=== PATIENT | female | born 1965 | race Caucasian/White ===

== ENCOUNTER 2017-08-08 17:28 | Emergency (ER) | payer BC ==
[~2017-08-08] VITALS: Ht 157.5 cm; Wt 57.2 kg
[~2017-08-08 17:28] MED LIST: FLEXERIL10 MG PO; KEFLEX 500MG.500 MG PO; [UNRECOGNIZED DRUG - CODE] PO
--- OUTSIDE RECORDS SUMMARY | 2017-08-08 17:32 | External Medical Summary Rpt | CCD ---
Author Author , HERMELINDO CASAREZ Address Unknown Phone [email or web address] Purpose Continuity of Care Document - through 2016
--- OUTSIDE RECORDS SUMMARY | 2017-08-08 17:32 | External Medical Summary Rpt | CCD ---
Author Author [employer] Organization [employer] Address Unknown Phone Unavailable Purpose Continuity of Care Document - through 2016
--- OUTSIDE RECORDS SUMMARY | 2017-08-08 17:32 | External Medical Summary Rpt | CCD ---
Author Author , HERMELINDO CASAREZ Address Unknown Phone [email or web address] Purpose Continuity of Care Document - through 2016
--- OUTSIDE RECORDS SUMMARY | 2017-08-08 17:33 | External Medical Summary Rpt | CCD ---
Demographics Preferred Language Faroese Marital Status Unknown Congregational Affiliation Unknown Race Unknown Ethnic Group Unknown Author Author , HERMELINDO CASAREZ Address Unknown Phone Immunization Unable to retrieve immunization data due to connection failure with Immunization Registry. Please try again later.
--- OUTSIDE RECORDS SUMMARY | 2017-08-08 17:33 | External Medical Summary Rpt | CCD ---
Demographics Preferred Language Albanian Marital Status Unknown Yarsani Affiliation Unknown Race Unknown Ethnic Group Unknown Author Author , HERMELINDO CASAREZ Address Unknown Phone Immunization Unable to retrieve immunization data due to connection failure with Immunization Registry. Please try again later.
--- OUTSIDE RECORDS SUMMARY | 2017-08-08 17:33 | External Medical Summary Rpt ---
Author Author HERMELINDO Napier, [employer] Organization [employer] Address Unknown Phone Unavailable
[2017-08-08] MEDS ORDERED: BROMFED DM COU118 ML PO (18:09)
[2017-08-08] MEDS ORDERED: AUGMENTIN 875-1 EACH PO (18:09)
[2017-08-08] MEDS ORDERED: FLONASE 50 MCG16 GM (18:09)
[2017-08-08] MEDS ORDERED: MEDROL 4MG. DOSE4 MG PO (18:09)
--- NOTE | 2017-08-08 18:10 | Urgent Treatment Center Report ---
History of Present Issue Date/Time Seen by Provider 08/08/17 1750 Visit Reason Pt arrived:Walked Presenting Problem:PT C/O BILATERAL EAR PAIN AND PRESSURE, SINUS DRAINAGE X2 DAYS Location if Accident: Onset of symptoms date/time:/ or onset unknown for:MEDICAL HX UNKNOWN Have you (or family members/close friends) recently traveled outside the [place]? N If Yes, where/when: Have you had exposure to infectious disease within the past month? TB? Other? Specify: Patient state that she has not been feeling well now for several days and continued to get worse. State that she is having bilateral ear pain with pressure behind her ears and sinus pain and drainage that has continued to get worse for last 2 days States that she feels tender around her eyes and feels pressure like she may have sinus infection and now today her throat is sore and red ALLERGIES Coded Allergies: No Known Allergies (08/08/17) Home Medications Active Scripts Cyclobenzaprine Hcl (Flexeril) 5 MG PO TID #30 TAB Prov: 11/13/14 Reported Medications Ethinyl Estradiol/Levonorges (Levonest) 1 TAB PO DAILY #28 History Medical History General CAD? No Angina: No MD: No Hypertension? No Hyperlipidemia? No CHF? No DVT? No PE? No COPD? No Asthma? No Anemia? No GERD? No Gastric ulcers? No GI Bleed? No Hernia? No Thyroid Problems? No Hypothyroidism? No CVA? No Seizures? No Diabetes? No UTI? No Stones? No BPH? No GB Disease: No Nephritic Syndrome? No Asplenia? No Hepatitis? No Sickle Cell Disease? No Arthritis? No Migraines? No Cataracts? No Glaucoma? No MRSA? No HIV? No TB? No Anxiety? No Depression? No Cancer? No More? No Immunization HX DT/Tetanus Unknown Flu Refused Pneumonia Refuses Surgical Hx Previous Surgery?N Family History Family HX Diabetes No CAD No Hypertension Yes Hyperlipidemia No Cancer Yes TB No Social History Smoking Hx Smoker: Never Smoker Tobacco: No Alcohol Alcohol: No Review of Systems All Other Systems Reviewed and Negative Constitutional chills ENT ear pain, nose discharge, nose congestion, throat pain. Respiratory cough, denies shortness of breath, denies wheezing Psychiatric/Neurological headache Physical Exam Vital Signs Vital Signs Date Time Temp Pulse Resp B/P Pulse O2 O2 Flow FiO2 Ox Delivery Rate 08/08 1734 99.0 90 20 142/88 99 General Appearance normal appearance, WD/WN, no apparent distress Ear, Nose, Throat sinus pain/drainage, nasal congestion, erythema of throat noted, drainage observed, tenderness maxillary sinuses reports yellowish green drainage Respiratory Status No: respiratory distress. Cardiovascular normal exam, regular rate/rhythm, no peripheral edema Neurologic alert, normal exam, oriented x 3 Medical Decision Making LABS/Meds/Orders Pt receiving controlled substance in ED? No Results/Orders Orders Procedure Date/time Status [facility] STREP SCREEN 08/08 1804 Active Departure Departure Time of Disposition 1803 Disposition DC Home or Self Care(routine) Clinical Impression Primary Impression: Sinusitis Qualifiers: Sinusitis location: unspecified location Chronicity: unspecified Qualified Code: J32.9 - Chronic sinusitis, unspecified Condition STABLE Referrals Chad Iverson MD (Family): 2 Days-Call Office Or sooner if worsening of symptoms or no improvement Patient Instructions Cough, DI for Ear Pain-Adult, DI for Sinusitis, Sinus Headache, Sinusitis, Sore Throat Additional Instructions * Monitor Temp. Tylenol and/or Ibuprofen as needed. ER if fever is no less than 101 despite alternating Tylenol and Ibuprofen * Encourage fluids, water, Gatorade, powerade, pedialyte if infant/toddler/or child * Warm salt water gargles for throat irritation *Warm fluids *Sore throat lozenges *Sleep elevated *humidifier or vaporizer Lots of rest Increase fluids, water, Gatorade, powerade *Flonase 2 sprays each nostril daily but may take 2-3 days to notice improvement with it *Bromfed may cause drowsiness. Know how it effect you or your child. Before driving, caring for small children or sending your child to school *Your throat swab was sent to lab for culture. Those results area typically sent to your primary care physician. Be sure to follow up in 2-3 days if no improvement so they can review those results and treat if necessary If you dont have primary care I recommend you get one, but in the mean time you will have to return to a walk in clinic Follow up IMMEDIATELY for new or worsening of symptoms OR no noticeable improvement over the next 48-72 hours. 911 immediately for any life threatening symptoms such as chest pain or difficulty breathing Discharge Counseling Counseled pt/family regarding diagnosis, test results, medications/RX, home care, follow up needs Prescriptions Current Visit Scripts Amoxicillin/Potassium Clav (Augmentin 875-125 Tablet) 1 EACH PO BID #14 TAB D-METHORPHAN HB/P-EPD HCL/BPM (Bromfed Dm Cough Syrup) 10 ML PO Q4HP PRN cough #120 SYR Fluticasone Propionate (Flonase 50 Mcg Nasal [place]) 2 SPRAY NA DAILY #1 BOT Methylprednisolone (Medrol Dose Reanna) 4 MG PO UD #1 REANNA TAKE DIRECTED ON PACKAGING at 0874
[2017-08-08 18:16] VITALS: BP 142/88
== END 2017-08-08 18:18 | disposition home or self-care (01) ==
LOC: UTC 17:28
DX: J32.9 Chronic sinusitis, unspecified (principal)